=== PATIENT | male | born 2005 | race African-American/Black ===

== ENCOUNTER 2024-09-02 22:29 | Emergency (ER) | payer MEDICAID, OTHER ==
[~2024-09-02] VITALS: Ht 152.4 cm; Wt 75.0 kg
[~2024-09-02 22:29] MED LIST: FLUT44H IH
[2024-09-02 22:32] VITALS: BP 140/92; PULSE 100; RESP 0; TEMP 98.2; O2SAT 100
== END 2024-09-02 22:56 | disposition left against medical advice (07) ==
LOC: EMS 22:29
DX: Z53.21 Procedure and treatment not carried out due to patient leaving prior to being seen by health care provider (principal)